=== PATIENT | female | born 1985 | race Caucasian/White ===

== ENCOUNTER 2017-05-14 17:57 | Emergency (ER) | payer MEDICAID ==
[2017-05-14 18:01] VITALS: BMI 48.7
--- NOTE | 2017-05-14 18:24 | DR.BITE ---
HPI - Time Seen Time seen: 18:40 - PCP Primary Care Physician: IZZY - HPI Comment HPI Comment: FINGER SWOLLEN, RED AND PAINFULL. SMALL DRAINAGE NOTED. NO FEVER. - Complaint/Symptoms Chief Complaint Doctor Comments: SPIDER BITE LT MIDDLE FINGER TIMES 4 DAYS. Chief Complaint:: PT. STATES SHE THINKS SHE MAY HAVE GOT BITTEN BY A SPIDER. LEFT MIDDLE FINGER SWOLLEN, RED, AND PAINFUL. 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 - Family History History of Family Medical Conditions: Yes Family Medical History: ND - Social History Does patient currently use any type of tobacco product: Yes Have you used tobacco products in the last 12 months: Yes Type of Tobacco Use: Cigarettes How many years tobacco product used: 10 Does any household member use tobacco: No Alcohol Use: None Do you use any recreational Drugs:: No Lives With: Family Lives Where: Home - infectious screening In the last 2 months have you had wt loss of >10#?: NO Have you had fever, night sweats or hemotysis?: No Have you traveled outside the country in the last 6 months?: No Isolation: Standard ROS - Review of Systems Constitutional: No Symptoms Reported Eyes: No Symptoms Reported ENTM: No Symptoms Reported Respiratoy: No Symptoms Reported Cardiovascular: No Symptoms Reported Gastrointestinal/Abdominal: No Symptoms Reported Genitourinary: No Symptoms Reported Neurological: No Symptoms Reported Musculoskeletal: Left, Hand Integumentary: Change in Color, Other (ABSCESS AND CELLULITIS LT MIDDLE FINGER.) Hematologic/Lymphatic: No Symptoms Reported Endocrine: No Symptoms Reported All Other Systems: Reviewed and Negative PE - Vital Signs Vital Signs: Temp Pulse Pulse Resp BP BP Pulse Ox 05/14/17 20:22 98.4 F 88 20 142/78 99 05/14/17 17:57 97.3 F L 86 20 149/83 99 - Constitutional Limitations: No Limitations General Appearance: Alert - Head Head Exam: Normal Inspection - Eyes Eye exam: Normal Appearance - ENT ENT Exam: Normal External Ear Exam - Neck Neck Exam: Normal Inspection - Chest Chest Inspection: Symmetric Chest Wall Rise - Respiratory Respiratory Exam: Normal Lung Sounds Bilat Respiratory Exam: Bilateral Clear to Auscultation - Cardiovascular Cardiovascular Exam: Regular Rate, Normal Rhythm, Irregular Rhythm - Abdominal Exam Abdominal Exam: Normal Bowel Sounds, Soft. negative: Tenderness - Extremities Extremities Exam: Tenderness (LT MIDDLE FINGER WITH REDNESS AND ABSCESS SLIGHTLY DRAINING.) - Back Back Exam: Normal Inspection - Neurologic Neurological Exam: Alert, Oriented X3 - Skin Description: Tenderness, Erythematous, Swelling, Macular, Papular Involving: Partial extremity Through to: Skin, SQ, Bite Distal Function: Normal MDM - Additional Information Obtained From Additional information provided by: Family - Differential Diagnosis Differential Diagnosis: Cellulitis (CELLULITIS, FINGER INFECTION.) Course - Treatment Treatment: SEE ORDERS. - Education/Counseling Education/Counseling: Patient, Education Educated On: Treatment, Diagnosis, Needs for Follow Up ROR - Labs Reviewed Laboratory Results Reviewed?: Yes Result Diagrams: 05/14/17 18:44 05/14/17 18:44 Laboratory: 05/14/17 19:10 Blood Blood Culture - Preliminary 05/14/17 18:51 Blood Blood Culture - Preliminary 05/14/17 20:29 Finger - Left Middle Gram Stain - Final 05/14/17 20:29 Finger - Left Middle Wound Culture - Final Methicillin Resis Staph Aureus WBC 13.4 X10^3/uL (3.6-10.0) H 05/14/17 18:44 RBC 5.15 X10^6/uL (3.5-5.4) 05/14/17 18:44 Hgb 14.8 g/dL (12.0-16.0) 05/14/17 18:44 Hct 43.4 % (36.0-47.0) 05/14/17 18:44 MCV 84.2 fL (80.0-100.0) 05/14/17 18:44 MCH 28.8 pg (27.0-34.0) 05/14/17 18:44 MCHC 34.2 g/dL (33.0-35.0) 05/14/17 18:44 RDW 14.1 % (11.6-16.5) 05/14/17 18:44 Plt Count 262 X10^3/uL (150.0-450.0) 05/14/17 18:44 MPV 8.6 fL (7.4-11.0) 05/14/17 18:44 Neut % 78.2 % (42.0-75.0) H 05/14/17 18:44 Lymph % 14.2 % (21.0-51.0) L 05/14/17 18:44 [place] % 5.2 % (0.0-13.0) 05/14/17 18:44 Eos % 1.3 % (0.9-2.9) 05/14/17 18:44 Baso % 1.1 % (0.2-1.0) H 05/14/17 18:44 Neut # 10.4 x10^3/uL (2.2-4.8) H 05/14/17 18:44 Lymph # 1.9 X10^3/uL (1.3-2.9) 05/14/17 18:44 [place] # 0.7 x10^3/uL (0.3-0.8) 05/14/17 18:44 Eos # 0.2 x10^3/uL (0.0-0.2) 05/14/17 18:44 Baso # 0.1 X10^3/uL (0.0-0.1) 05/14/17 18:44 Absolute Nucleated RBC 0.0 /100WBC 05/14/17 18:44 Sodium 135 mmol/L (136-145) L 05/14/17 18:44 Corrected Sodium 136 mmol/L (136-145) 05/14/17 18:44 Potassium 3.4 mmol/L (3.5-5.1) L 05/14/17 18:44 Chloride 103 mmol/L (98-107) 05/14/17 18:44 Carbon Dioxide 23.7 mmol/L (21-32) 05/14/17 18:44 BUN 6 mg/dL (7-18) L 05/14/17 18:44 Creatinine 1.07 mg/dL (0.55-1.02) H 05/14/17 18:44 Est GFR (MDRD) Af Amer > 60 (>60) 05/14/17 18:44 Est GFR (MDRD) Non-Af > 60 (>60) 05/14/17 18:44 Glucose 121 mg/dL (65-99) H 05/14/17 18:44 Calcium 8.8 mg/dL (8.5-10.1) 05/14/17 18:44 Corrected Calcium 9.4 mg/dL (8.5-10.1) 05/14/17 18:44 Total Bilirubin 0.40 mg/dL (0.2-1.0) 05/14/17 18:44 AST 47 Units/L (15-37) H 05/14/17 18:44 ALT 102 Units/L (12-78) H 05/14/17 18:44 Alkaline Phosphatase 102 Units/L (46-116) 05/14/17 18:44 Total Protein 7.0 g/dL (6.4-8.2) 05/14/17 18:44 Albumin 3.3 g/dL (3.4-5.0) L 05/14/17 18:44 Globulin 3.7 g/dL (2.5-4.5) 05/14/17 18:44 Albumin/Globulin Ratio 0.9 Ratio (1.1-2.1) L 05/14/17 18:44 - XRAY XRAY Interpreted by: Radiologist Procedures - Incision and Drainage Blade Size: 11 I & D Procedure: betadine prep, sterile drapes applied, sterile dressing applied , gauze wick placed Progress: I&D DONE ON ABSCESS ON LT MIDDLE FINGER. - Diagnosis Discharge Problem: Abscess, Infected hand Cellulitis Qualifiers: Site of cellulitis: extremity Site of cellulitis of extremity: finger Laterality: left Qualified Code(s): L03.012 - Cellulitis of left finger - Discharge Plan Disposition: HOME, SELF-CARE Condition: Stable Prescriptions: Acetaminophen with Codeine [Tylenol/Codeine #3 300-30 mg] 1 tab PO Q4-6H PRN # 15 tab PRN Reason: Pain Clindamycin HCl 300 mg PO Q6H #40 cap Naproxen 500 mg PO Q8H #20 tablet Sulfamethoxazole-Trimethoprim [BACTRIM DS TAB 800/160 MG *] 1 tab PO BID #20 tab - Follow ups/Referrals Follow ups/Referrals: [facility],None [Primary Care Provider] - 3 days Xu Beltran [STAFF PHYSICIAN] - 3 days - Instructions Instructions: Abscess, Ibil-ws-Amid, Cellulitis, Adult, [id number] Additional Instructions: RETURN TO ED IF WORSE.
[2017-05-14] MEDS ORDERED: MORPHINE SULFATE INJ 4 MG IM ONE (18:36)
[2017-05-14] MEDS ORDERED: ZOFRAN INJ 4 MG VIAL IM ONE (18:37)
[2017-05-14] MEDS ORDERED: ZOFRAN INJ 4 MG VIAL ONE (18:41)
[2017-05-14] MEDS ORDERED: MORPHINE SULFATE INJ 4 MG ONE (18:41)
[2017-05-14 19:00] LABS: BASOPHILS # (AUTO) 0.1 X10^3/uL (0.0-0.1); BASOPHILS % (AUTO) 1.1 % (0.2-1.0); EOSINOPHILS # (AUTO) 0.2 x10^3/uL (0.0-0.2); EOSINOPHILS % (AUTO) 1.3 % (0.9-2.9); HEMATOCRIT 43.4 % (36.0-47.0); HEMOGLOBIN 14.8 g/dL (12.0-16.0); LYMPHOCYTES # (AUTO) 1.9 X10^3/uL (1.3-2.9); LYMPHOCYTES % (AUTO) 14.2 % (21.0-51.0); MEAN CORPUSCULAR HEMOGLOBIN 28.8 pg (27.0-34.0); MEAN CORPUSCULAR HGB CONC 34.2 g/dL (33.0-35.0); MEAN CORPUSCULAR VOLUME 84.2 fL (80.0-100.0); MEAN PLATELET VOLUME 8.6 fL (7.4-11.0); MONOCYTES # (AUTO) 0.7 x10^3/uL (0.3-0.8); MONOCYTES % (AUTO) 5.2 % (0.0-13.0); NEUTROPHILS # (AUTO) 10.4 x10^3/uL (2.2-4.8); NEUTROPHILS % (AUTO) 78.2 % (42.0-75.0); PLATELET COUNT 262 X10^3/uL (150.0-450.0); RED BLOOD COUNT 5.15 X10^6/uL (3.5-5.4); RED CELL DISTRIBUTION WIDTH 14.1 % (11.6-16.5); WHITE BLOOD COUNT 13.4 X10^3/uL (3.6-10.0)
[2017-05-14 19:12] LABS: ALANINE AMINOTRANSFERASE 102 Units/L (12-78); ALBUMIN 3.3 g/dL (3.4-5.0); ALKALINE PHOSPHATASE 102 Units/L (46-116); ASPARTATE AMINO TRANSFERASE 47 Units/L (15-37); BLOOD UREA NITROGEN 6 mg/dL (7-18); CALCIUM 8.8 mg/dL (8.5-10.1); CARBON DIOXIDE 23.7 mmol/L (21-32); CHLORIDE 103 mmol/L (98-107); COR CA(FOR HYPOALB) 9.4 mg/dL (8.5-10.1); COR NA(FOR HYPERGLY) 136 mmol/L (136-145); CREATININE 1.07 mg/dL (0.55-1.02); SODIUM 135 mmol/L (136-145); eGFR BLACK RACES > 60 (>60); eGFR NON BLACK RACES > 60 (>60)
[2017-05-14] MEDS ORDERED: BACTRIM DS TAB PO ONE ×2 (19:30→19:53)
[2017-05-14] MEDS ORDERED: XYLOCAINE 2 % (PLAIN) IJ ONE (19:31)
[2017-05-14] MEDS ORDERED: TORADOL TAB PO ONE ×2 (19:31→19:53)
[2017-05-14] MEDS ORDERED: CLEOCIN PO ONE (19:31)
[2017-05-14] MEDS ORDERED: XYLOCAINE 2 % (PLAIN) ONE (19:32)
[2017-05-14] MEDS ORDERED: CLEOCIN ONE (19:53)
[2017-05-14 20:23] VITALS: BP 142/78
== END 2017-05-14 20:23 | disposition home or self-care (01) ==
LOC: ER 18:07
PROC: 0X9K3ZZ Drainage of Left Hand, Percutaneous Approach (ICD-10-PCS; principal; 2017-05-14)
DX: L02.512 Cutaneous abscess of left hand (principal); L03.012 Cellulitis of left finger; L08.9 Local infection of the skin and subcutaneous tissue, unspecified; W57.XXXA Bitten or stung by nonvenomous insect and other nonvenomous arthropods, initial encounter
CPT/HCPCS: 10060; 36415; 80053; 85025; 87040; 87070; 87075; 87077; 87186; 87205; 96372; 99283; J2001; J2270; J2405